=== PATIENT | male | born 1960 | race Caucasian/White ===

== ENCOUNTER 2017-06-07 07:26 | Emergency (ER) | payer OTHER ==
[2017-06-07 07:40] VITALS: BP 139/93; PULSE 77; RESP 16; TEMP 97.7; O2SAT 95
[2017-06-07] MEDS ORDERED: GABAPENTIN 300 MG CAP PO ONE (07:56)
[2017-06-07] MEDS ORDERED: KETOROLAC 15 MG/1 ML SDV IM ONE (07:56)
[2017-06-07] MEDS ORDERED: LIDOCAINE 5% 1 EA PATCH TD ONE (07:56)
[2017-06-07] MEDS ORDERED: DEXAMETHASONE 4 MG/ML VIAL PO ONE (07:56)
[2017-06-07] MEDS ORDERED: CYCLOBENZAPRINE 10 MG TAB PO ONE (07:56)
[2017-06-07] MEDS ORDERED: ACETAMINOPHEN 500 MG TAB PO ONE (07:56)
--- NOTE | 2017-06-07 08:10 | EDPHY ---
H & P Time Seen by Provider: 06/07/17 07:35 HPI/ROS: CHIEF COMPLAINT: Back pain HISTORY OF PRESENT ILLNESS: This is a 56-year-old male who reports for the last week and a half he has had right-sided the upper lumbar back discomfort. Pain is been described as an achy sensation. Makes it uncomfortable to move. Pain radiates down into the side of the buttock. This morning when he got out of the bed, he developed severe back discomfort with pain radiating around to the anterior thigh and weakness in the anterior thigh. Patient does have a history of L4-L5 and L5-S1 diskectomy and laminectomies done in 1999 with some residual footdrop on the left side. He is concerned regarding this back pain and the weakness he is now noting his thigh. Patient denies any bowel or bladder difficulties. He denies any radiation of the pain below the level of the knee. He denies any urinary symptoms, blood in his urine, nausea, vomiting. Denies any shortness of breath or chest pain. Cannot identify a clear inciting event which led to this onset of back discomfort. No fever, chills, chest pain, shortness of breath, palpitations, vomiting, diarrhea, urinary complaints, headache, lightheadedness. REVIEW OF SYSTEMS: Aside from elements discussed in the HPI, a comprehensive 10-point review of systems was reviewed and is negative. PAST MEDICAL HISTORY: GERD, lumbar back surgery. SOCIAL HISTORY: Nonsmoker. VITAL SIGNS Reviewed by me. GENERAL: Well-developed, well-nourished, appears uncomfortable when moving about the bed. HEENT: Atraumatic. Normal exam. LUNGS: Clear to auscultation bilaterally, no wheezes, rhonchi or rales. CARDIAC: Regular rate and rhythm, no rubs, murmurs or gallops. ABDOMEN: Soft, nontender, nondistended, bowel sounds normal. BACK: Well-healed, cold, lumbar midline surgical scar. No lumbar midline tenderness to palpation. No thoracic midline tenderness to palpation. Right lumbar paraspinous muscle spasm is present, with tenderness in the paraspinous muscles. No CVA tenderness. Neurological exam: Straight leg raise test is negative bilaterally. Hip flexion, knee extension, knee flexion, dorsiflexion and plantar flexion are 5/ 5 bilaterally, with the exception of 4+/5 plantar flexion on the left. EHL 5 over 5. Sensation is intact to light touch throughout. 2+ knee and ankle jerk bilaterally. NEURO: Alert and oriented, grossly nonfocal. SKIN: Warm and dry, no rash. PSYCHIATRIC: Normal mentation, no agitation. Smoking Status: Never smoked Constitutional: Initial Vital Signs Temperature (C) 36.5 C 06/07/17 07:35 Heart Rate 77 06/07/17 07:35 Respiratory Rate 16 06/07/17 07:35 Blood Pressure 139/93 H 06/07/17 07:35 O2 Sat (%) 95 06/07/17 07:35 O2 Delivery Mode Room Air Allergies/Adverse Reactions: No Known Allergies Allergy (Verified 06/07/17 07:33) Home Medications: Medication Instructions Recorded Cyclobenzaprine [Flexeril 10 MG 10 mg PO TID PRN #20 tab 06/07/17 (RX)] Gabapentin [Neurontin 300 MG (*)] 300 mg PO HS #20 cap 06/07/17 Pantoprazole Sodium 06/07/17 Pepcid 06/07/17 methylPREDNISolone [Medrol Dose 4 mg PO DAILY #1 ea 06/07/17 Og] oxyCODONE/APAP 5/325 [Percocet 1 tab PO QID PRN #14 tab 06/07/17 5/325 (*)] Medical Decision Making - Diagnostics Imaging Results: Imaging Impressions Lumbar Spine MRI 06/07/17 08:01 Impression: 1. L3-L4: Focal central/right paracentral disk protrusion with inferior migration contacting and likely compressing the right L4 nerve root. 2. L4-L5: Mild to moderate right and mild left neural foraminal stenosis. 3. L5-S1: Moderate left and mild right neural foraminal stenosis. Please see above findings at specific disk levels. Message left with Ramonita Martinez MD on 06/07/2017 at 10:17 a.m. Imaging: Discussed imaging studies w/ will call clerk Radiologist ED Course/Re-evaluation: 56-year-old gentleman presenting with lumbar back pain in the upper L-spine region. Today he developed weakness in the anterior quadriceps as well as pain. Patient is worried regarding the development of the symptoms especially in light of the fact that he has a footdrop on the opposite side. Patient's symptoms were treated with Toradol IM, Decadron p.o., Flexeril p.o., and a prescription for Medrol Dosepak. Lidocaine patch was also applied. Patient obtain an MRI at [facility]. This does demonstrate disc protrusion at L3-L4 with inferior migration. I discussed the results of the MRI with the patient. I encouraged him to use the medications as directed then to follow up with Neurosurgery as referred. All questions were answered. Differential Diagnosis: After history was obtained and physical exam performed, the differential for back pain was considered including but not limited to muscular pain, herniated disc, spine fracture, intra-abdominal causes, and urinary tract infection. - Data Points Medications Given: Discontinued Medications Acetaminophen (Tylenol) 1,000 mg PO EDNOW ONE Stop: 06/07/17 07:57 Last Admin: 06/07/17 08:51 Dose: Not Given Cyclobenzaprine HCl (Flexeril) 10 mg PO EDNOW ONE Stop: 06/07/17 07:57 Last Admin: 06/07/17 08:28 Dose: 10 mg Dexamethasone (Decadron) 8 mg PO EDNOW ONE Stop: 06/07/17 08:14 Last Admin: 06/07/17 08:30 Dose: 8 mg Gabapentin (Neurontin) 600 mg PO EDNOW ONE Stop: 06/07/17 07:57 Last Admin: 06/07/17 08:31 Dose: 600 mg Ketorolac Tromethamine (Toradol) 30 mg IM EDNOW ONE Stop: 06/07/17 07:57 Last Admin: 06/07/17 08:27 Dose: 30 mg Lidocaine (Lidoderm 5%) 1 ea TD EDNOW ONE Stop: 06/07/17 07:57 Last Admin: 06/07/17 08:32 Dose: 1 ea Miscellaneous Information (Patch Removal) 1 ea TD DAILY21 SUJATA Stop: 12/04/17 20:59 Last Admin: 06/07/17 08:51 Dose: 1 ea Departure - Departure Disposition: Home, Routine, Self-Care Clinical Impression: Lumbar back pain with radiculopathy affecting left lower extremity Condition: Good Instructions: Oxycodone/Acetaminophen (By mouth), Cyclobenzaprine (By mouth), Gabapentin (By mouth), Acute Low Back Pain (ED), Lumbar Radiculopathy (ED) Additional Instructions: Please proceed to [facility]. You will have an MRI this morning. I will discuss the results with you when it is finished. Musculoskeletal pain is often treated with anti-inflammatories, muscle relaxants , and pain medications. 1. I recommend Ibuprofen (Motrin, Advil) or Naproxen Sodium (Aleve) for pain and anti-inflammatory effects. You may take either one, but do not take both. Your dose is: Ibuprofen 600 mg every 6-8 hours with food. OR Naproxen Sodium (Aleve) 220 mg every 12 hours. You have also been given a prescription for a Medrol Dosepak to use as directed to treat inflammation. Please begin taking this tomorrow. 2. For muscle relaxation, you been given a prescription of Flexeril. Please take this as directed. It may make you sleepy. 3. For pain relief, I suggest high-dose Tylenol (650mg-1000mg of Tylenol) up to 3 times a day. Not exceed 3000 mg in a 24 hour period. I also suggest lidocaine patches. 4% lidocaine patches are available over-the- counter. 4. You been given a prescription for gabapentin. Please take this as directed in the evenings. It may help with the neuropathic pain. Please follow up with your primary care physician or with Neurosurgery as directed. Consider physical therapy or chiropractic followup for persistent discomfort. Return to the emergency department if you experience significantly worsening pain, worsening weakness, numbness or tingling, difficulties with bowel or bladder, fever, nausea, vomiting, or other concerns. Referrals: Han Pereira MD [Primary Care Provider] - As per Instructions Mao Park MD [Medical Doctor] - As per Instructions (Dr. Park is part of [facility]. Please follow up with Dr. Park or one of his collegues for further evaluation of your back pain.) Prescriptions: Cyclobenzaprine [Flexeril 10 MG (RX)] 10 mg PO TID PRN #20 tab PRN Reason: Muscle Spasms Gabapentin [Neurontin 300 MG (*)] 300 mg PO HS #20 cap methylPREDNISolone [Medrol Dose Og] 4 mg PO DAILY #1 ea oxyCODONE/APAP 5/325 [Percocet 5/325 (*)] 1 tab PO QID PRN #14 tab PRN Reason: Pain
[2017-06-07] MEDS ORDERED: DEXAMETHASONE 4 MG TAB PO ONE (08:13)
[2017-06-07] MEDS ORDERED: PATCH REMOVAL 1 EA PATCH TD SCH (21:00)
== END 2017-06-07 08:37 | disposition home or self-care (01) ==
LOC: CED 07:26
DX: M54.16 Radiculopathy, lumbar region (principal)
CPT/HCPCS: J1100; J1885

== ENCOUNTER → 2017-07-04 | Outpatient (CLI) | payer OTHER | LOC: CIMAGING 09:10 | PROVIDERS: ATTEND Physical Medicine & Rehabilitation Neuromuscular Medicine | DX: M51.36 Other intervertebral disc degeneration, lumbar region (principal); M47.896 Other spondylosis, lumbar region | CPT/HCPCS: 72114-PO ==

== ENCOUNTER → 2017-07-18 | Outpatient (CLI) | payer OTHER ==
[~2017-07-18] MED LIST: GADOBUTROL 10 ML VIAL IVP ONE
== END ==
LOC: FIMAGING 14:19
PROVIDERS: ATTEND Physician Assistant Surgical
DX: M54.16 Radiculopathy, lumbar region (principal); Z47.89 Encounter for other orthopedic aftercare
CPT/HCPCS: A9585

== ENCOUNTER → 2018-04-13 | Outpatient (CLI) | payer OTHER | LOC: FIMAGING 12:15 | PROVIDERS: ATTEND Internal Medicine | DX: J98.4 Other disorders of lung (principal) ==